=== PATIENT | male | born 1955 | race Caucasian/White ===

== ENCOUNTER 2017-04-16 06:07 | Inpatient (IN) ==
--- NOTE | 2017-04-15 20:08 | Discharge Summary ---
<Sara Callahan - Last Filed: 04/15/17 20:05> Date of Encounter: 04/15/17 - Discharge Diagnosis (1) Loosening of knee joint prosthesis Status: Acute Qualifiers: Encounter type: initial encounter Qualified Code(s): T84.038A - Mechanical loosening of other internal prosthetic joint, initial encounter; Z96.659 - Presence of unspecified artificial knee joint (2) COPD (chronic obstructive pulmonary disease) Priority: Secondary Status: Chronic Qualifiers: COPD type: chronic bronchitis (3) Tobacco abuse Priority: Secondary Status: Chronic - Discharge Medications Home Medications: Melatonin 5 mg PO HS PRN 07/13/16 [History] Aspirin Enteric Coated [Aspirin EC] 325 mg PO DAILY #21 tablet.dr 04/15/17 [Rx] OxyCODONE/APAP 5/325 [Percocet 5/325 MG] 1 - 2 each PO Q6HR PRN #40 tablet 04/15 [Rx] Acetaminophen/Diphenhydramine [Night Time Pain Medicine Cplt] 8 - 10 tab PO HS PRN 04/16/17 [History] Ibuprofen [Motrin] 200 mg PO Q2-3H PRN 04/16/17 [History] Allergies/Adverse Reactions: Allergies Penicillins [PCN] Allergy (Verified 04/16/17 07:15) Hives Halothane Adverse Reaction (Verified 04/16/17 07:15) See Comments "slept for 20 hours" Couldn't wake up after surgery. Primary care physician: PCP NO - Patient Status Disposition: Home, Self-Care Condition: Good - Discharge Instructions Follow Up With: NO,PCP [Primary Care Provider] - - Hospital Course Hospital course: Mr. Castillo is a 61 year old male - Time Spent with Patient Total time spent providing and/or coordinating discharge services: <Gilbert Gage - Last Filed: 04/19/17 08:05> Date of Encounter: 04/19/17 Time of Encounter: 08:04 - Discharge Diagnosis (1) COPD (chronic obstructive pulmonary disease) Priority: Secondary Status: Chronic Qualifiers: COPD type: chronic bronchitis Chronic bronchitis type: unspecified Qualified Code(s): J42 - Unspecified chronic bronchitis (2) Tobacco abuse Priority: Secondary Status: Chronic (3) Loosening of knee joint prosthesis Priority: Primary Status: Acute Qualifiers: Encounter type: initial encounter Qualified Code(s): T84.038A - Mechanical loosening of other internal prosthetic joint, initial encounter; Z96.659 - Presence of unspecified artificial knee joint Primary care physician: PCP NO - Patient Status Overall status at discharge: patient is progressing back to baseline - Hospital Course Hospital course: Mr. Castillo is a 61 year old male The patient had an uneventful postoperative course. They received antibiotics and physical therapy and were discharged in stable condition. There will follow -up in the office in 2 weeks. Aspirin DVT prophylaxis - Time Spent with Patient Total time spent providing and/or coordinating discharge services:
--- NOTE | 2017-04-16 06:20 | History & Physical Report ---
Date of Encounter: 04/16/17 Time of Encounter: 06:19 24 Hour HP Update - Instructions Instructions: If the History and Physical is less than 30 days old and was completed prior to A.M. admission and or procedure and has NOT been updated on calendar day of procedure please complete this update prior to performing procedure. - Update Patient reports changes in Medical Condition: No Changes in examination, assessment, or condition: No Changes in Medication: No Preop tests/diagnostics Reviewed: Yes Surgery Remains Indicated: Yes Consent for Planned Operative Procedure(s) Verified: Yes - Pre-Operative Checklist Preoperative Checklist Indicated: No Prophylactic Antibiotic Ordered: Yes Is VTE Prophylaxis Indicated?: Yes
[2017-04-16] MEDS ORDERED: Vancomycin 750 MG in D5% in Water 250 ML IVPB ONE (06:27)
[2017-04-16] MEDS ORDERED: Albuterol 2.5 MG/3 ML NEBULIZER IH ONE (06:27)
[2017-04-16] MEDS ORDERED: Ringers Solution, Lactated 1,000 ML IVC SCH ×2 (06:30→11:07)
[2017-04-16] MEDS ORDERED: *HR* FentaNYL (PF) 100 MCG/2 ML VIAL ONE (07:04)
[2017-04-16] MEDS ORDERED: *HR* Propofol 200 MG/20 ML VIAL IVP ONE (07:04)
[2017-04-16] MEDS ORDERED: *HR* Midazolam HCl 2 MG/2 ML VIAL ONE (07:04)
[2017-04-16] MEDS ORDERED: *HR* Succinylcholine 200 MG/10 ML VIAL IVP ONE (07:05)
[2017-04-16] MEDS ORDERED: Lidocaine -MPF 2% 2 ML VIAL ONE (07:05)
[2017-04-16] MEDS ORDERED: Dexamethasone 4 MG/ML VIAL ONE (07:05)
[2017-04-16] MEDS ORDERED: Ondansetron 4 MG/2 ML VIAL ONE (07:05)
[2017-04-16] MEDS ORDERED: *HR* Phenylephrine 10 MG/ML VIAL ONE (07:05)
--- NOTE | 2017-04-16 07:10 | Anesthesia Evaluation PreOp ---
Date of Encounter: 04/16/17 Time of Encounter: 07:00 - Past History Planned Operation: Left Total Knee Arthroplasty, Revision Patella Cardiac History: Denies any Significant Hx Pulmonary History: Smoker, COPD DEVELOPMENT TRAINER History: Denies Any Significant HX Other Medical History: GERD (well controlled) Anesthesia History: No Prior Anesthetic Complications Alcohol Use: none Drug use: none Medications and Allergies Gabapentin [Neurontin] 300 mg PO TID 07/13/16 [History] Melatonin 5 mg PO HS 07/13/16 [History] Omeprazole [PriLOSEC] 20 mg PO DAILY 07/13/16 [History] Temazepam [Restoril] 30 mg PO HS 07/13/16 [History] Aspirin Enteric Coated [Aspirin EC] 325 mg PO DAILY #21 tablet. 04/15/17 [Rx] OxyCODONE/APAP 5/325 [Percocet 5/325 MG] 1 - 2 each PO Q6HR PRN #40 tablet 04/15 [Rx] Allergies Penicillins [PCN] Allergy (Verified 04/10/17 12:16) Hives Halothane Adverse Reaction (Verified 04/10/17 12:16) See Comments "slept for 20 hours" Couldn't wake up after surgery. - Meds/Allergy Pre-op Review Medications Reviewed: Yes Allergies Reviewed: Yes Beta Blockers on Current Med List: No Anesthesia Results - Labs Laboratory Tests 04/10/17 04/10/17 12:36 12:36 Hgb 14.9 Hct 44.6 Plt Count 465 H Sodium 135 L Potassium 4.2 BUN 9 Creatinine 0.75 - Imaging EKG: report reviewed (SR) Anesthesia Exam O2 Sat Height 1.7 m Height 1.7 m Height 1.7 m Weight 58.06 kg Weight 58.06 kg Weight 58.06 kg O2 Sat by Pulse Oximetry 98 Vital Signs Temp Pulse Resp BP Pulse Ox 98.1 F 67 18 153/86 98 04/16/17 06:25 04/16/17 06:25 04/16/17 06:25 04/16/17 06:25 04/16/17 06:25 Height: 5'7 Weight: 128 lbs NPO (# of Hours): MN Pain Scale: 0 - HEENT Pupil (Motor): Pupils equal, EOMI Mallampati: II Teeth: Edentulous Oral Opening: Less than or equal to 3 - DEVELOPMENT TRAINER LOC: Oriented DEVELOPMENT TRAINER Motor: Normal RUE, Normal LUE, Normal RLE, Normal LLE, Normal Face DEVELOPMENT TRAINER Sensory: Normal: RUE, LUE, RLE, LLE, Face - Cardiac Rhythm: Regular Murmur: None JVD: No Carotid Bruit: No - Pulmonary Breath Sounds: bilateral Clear Respiratory Effort: Symmetrical Anesthesia Assess/Plan ASA Score: 2 Modified Jazmin Scale for Level of Consciousness: Cooperative, oriented, and tranquil Anesthetic Plan: General, Regional Monitoring Plan: Standard Monitors Recovery Plan: PACU (Discussed GA and RA, agrees to proceed)
[2017-04-16] MEDS ORDERED: Bupivacaine/Clonidine Syringe 1 EACH SYRINGE ONE (07:25)
[2017-04-16] MEDS ORDERED: Albuterol 2.5 MG/3 ML NEBULIZER ONE (07:28)
--- NOTE | 2017-04-16 07:51 | Anesthesia Procedures ---
Date of Encounter: 04/16/17 Time of Encounter: 07:49 Procedures: Anesthesia - Nerve Block Procedure Date: 04/16/17 Time: 07:49 Pre-op Diagnosis: L knee pain Surgical Procedure: L TKA Checklist: Correct Patient Identifier Correct side: Left Blood Thinner: No Monitor Applied: EKG, BP, Pulse Oximetry Supplemental Oxygen via Nasal Cannula (L/min): 3 Sedation: Versed (mg): 2 Sedation: Fentanyl (mcg): 100 Indication: Post Op Analgesia Pre-op Neuro Deficits: No Block Type: Femoral, Other (IPAK) Catheter placed: No Sterile Technique: Yes Ultrasound used: Yes Anatomy identified: Yes Visual spread of Local: Yes Neuro Stimulation: Yes Nerve Stimulator Range: 0.2 - 0.4 mA Blood on Needle Aspiration: No Smooth Injection of Local: Yes Pain with Injection of Local: No Prep: Chlorhexadine Needle: 22 x 50 mm Stimuplex, 21 x 100 mm Stimuplex Local: 0.25% Bupivicaine w/Clonidine 20 mcg/cc, Ropivacaine (0.2 300) Volume (cc): 30/20 Number of Attempts: 1 Complications: None/effective block Vitals: Vital Signs/O2 Sat, Most Current Temp Pulse Resp BP Pulse Ox 98.1 F 71 16 149/92 93 04/16/17 07:39 04/16/17 07:43 04/16/17 07:43 04/16/17 07:43 04/16/17 07:43 Comments: aseptic, devon well
[2017-04-16] MEDS ORDERED: Ondansetron 4 MG/2 ML VIAL IVP PRN ×2 (07:54→11:07)
[2017-04-16] MEDS ORDERED: *HR* HYDROmorphone 2 MG/ML SYRINGE ONE (08:26)
--- NOTE | 2017-04-16 09:12 | Orthopedic Operative Note ---
Date of procedure: 04/16/17 Pre-op diagnosis: aseptic loosening left total knee Post-op diagnosis: same Procedure: Procedure:left revision total knee patellectomy Estimated blood loss: Hardware: Metal and polyethylene replacement. Biomet SSK femur: 60 12 x 40 Tibia:67, small wing 10 x 80 Constrained Mala:22 Exam Under anesthesia: full flexion and extension varus valgus instability Procedural Notes:loose femur and tibia Operative procedure: The patient was brought to the operating room and placed on the operating room table. After general anesthesia was administered the operative knee was examined. Findings were noted in the exam under anesthesia. The operative extremity was prepped and draped in sterile surgical fashion. The patient received IV antibiotics prior to skin incision. A standard midline incision was made centered over the patella through the old incision. The incision was made through the skin and subcutaneous tissue. A medial parapatellar tendon approach was performed. Care was taken to preserve tissue along the medial aspect of the patella. And to protect the patella tendon. the patella was excisedThe deep MCL was released off the medial tibia. The infra patella fat pad was excised. Fluid was encountered this was normal joint fluid , Cultures were obtained and gram . The knee was brought into flexion the poly-was removed. The interface between the patient's femoral component and distal femur were disrupted with a osteotome and oscillating saw. Femoral component was removed removed without significant bone loss and was loose. Attention was then turned to the tibial component. The same technique was used to remove the tibial component by disrupting the interface between the patient's tibial component and the patients proximal tibia. The tibial component was loose, was removed without significant bone loss. The tibia was sized to a 67 was reamed up to a 10x80. Trial had good fit and fixation. The femur was sized to a 60, was reamed up to a 12x40. The finishing guide was seated and the box cut was made. The trial had good fit and fixation. Both trial components were seated and the 22 constrained Mala was seated and secured. The knee had full flexion and full extension with no instability. The trial components were removed. The knee sat for 2 minutes with a Betadine saline solution. It was irrigated out with 2 L of pulse irrigation. The components were assembled on the back table, the tibia cemented first followed by the femur. The 22 constrained liner was seated and secure. The knee was brought to full extension while the cement hardened. After the cement hardened the knee was irrigated out again. The extensor mechanism was closed with a running #2 PDS suture. The deep tissue was irrigated and closed deep with #1 PDS suture superficially with 0 PDS suture. The skin was closed with skin sofia. The patient was placed in a sterile dressing and postoperative brace. They were extubated and transferred to recovery room in stable condition. Anesthesia: PRADEEP Surgeon: Gilbert Gage Inserting Operator: Sara Callahan Condition: stable Disposition: PACU
[2017-04-16 09:44] LABS: Hematocrit 39.4 % (37.5-50.1); Hemoglobin 13.4 g/dL (12.9-16.9)
[2017-04-16] MEDS ORDERED: *HR* HYDROmorphone (PF) 1 MG/ML SYRINGE ONE ×2 (09:45→10:09)
[2017-04-16] MEDS: *HR* HYDROmorphone (PF) 1 MG/ML SYRINGE IVP PRN ×7 (09:49→22:38)
[2017-04-16] MEDS ORDERED: Acetaminophen IV 1,000 MG/100 ML INFUS..BTL IVPB ONE (10:29)
[2017-04-16] MEDS ORDERED: Ketorolac 30 MG/ML VIAL IM ONE (10:29)
[2017-04-16] MEDS ORDERED: *HR* OxyCODONE Immed Rel 5 MG TABLET PO PRN (11:07)
[2017-04-16] MEDS ORDERED: Sennosides 8.6 MG TABLET PO PRN (11:07)
[2017-04-16] MEDS ORDERED: Melatonin 3 MG TABLET PO PRN (11:07)
[2017-04-16] MEDS ORDERED: Naloxone 0.4 MG/ML INJ IVP PRN (11:07)
[2017-04-16] MEDS ORDERED: MOM Conc 10 ML UD.LIQ PO PRN (11:07)
--- NOTE | 2017-04-16 11:31 | Anesthesia Evaluation Post Op ---
Date of Encounter: 04/16/17 Time of Encounter: 11:00 - Vital Signs Vital Signs: Vital Signs/O2 Sat/Glucose, Most Current Temp Pulse Resp BP Pulse Ox 04/16/17 11:08 97.5 F L 91 18 156/83 96 04/16/17 10:59 98.4 F 90 16 158/93 93 04/16/17 10:49 89 16 159/91 93 04/16/17 10:39 80 16 141/92 94 04/16/17 10:29 98.4 F 82 16 164/98 92 04/16/17 10:19 82 16 164/100 92 04/16/17 10:09 90 16 168/106 92 04/16/17 09:59 97.4 F L 82 16 147/83 94 04/16/17 09:49 86 16 156/96 96 04/16/17 09:39 82 16 145/83 96 04/16/17 09:29 97.4 F L 79 16 122/91 98 04/16/17 07:43 71 16 149/92 93 04/16/17 07:39 98.1 F 67 18 153/86 - Lungs Lungs: Clear Ascult./Percussion - Airway Airway: Non-obstructed - Cardiovascular Regular Rate - Mental Status Mental Status: Alert & Oriented, Answers Appropriately - Pain Pain Scale: 4 - Nausea Vomiting Nausea Vomiting: Not Present - Hydration Hydration: Ice chips - Discharge PostOp Status: Transfer Patient to floor
[2017-04-16] MEDS: *HR* OxyCODONE Immed Rel 5 MG TABLET PO PRN ×3 (13:04→21:32)
[2017-04-16] MEDS: *HR* Enoxaparin 30 MG/0.3 ML SYRINGE SQ SCH (17:36)
[2017-04-16] MEDS: Clindamycin 900 MG/50 ML 900 MG/50 ML IV.SOLN IVPB SCH (17:40)
[2017-04-16] MEDS ORDERED: *HR* Enoxaparin 30 MG/0.3 ML SYRINGE SQ SCH (18:00)
[2017-04-16] MEDS: Ketorolac 15 MG/ML VIAL IVP PRN (19:38)
[2017-04-16] MEDS: Temazepam 15 MG CAPSULE PO PRN (22:38)
[2017-04-17] MEDS: Clindamycin 900 MG/50 ML 900 MG/50 ML IV.SOLN IVPB SCH (00:33)
[2017-04-17] MEDS: *HR* HYDROmorphone (PF) 1 MG/ML SYRINGE IVP PRN ×10 (00:34→22:30)
[2017-04-17] MEDS: *HR* OxyCODONE Immed Rel 5 MG TABLET PO PRN ×5 (01:34→19:31)
[2017-04-17] MEDS: *HR* Enoxaparin 30 MG/0.3 ML SYRINGE SQ SCH ×2 (04:56→17:11)
[2017-04-17 05:51] LABS: Hematocrit 37.2 % (37.5-50.1); Hemoglobin 12.2 g/dL (12.9-16.9)
[2017-04-17 06:11] LABS: BUN/Creatinine Ratio 20 (6-26); Blood Urea Nitrogen 15 mg/dL (8-26); Calcium 8.7 mg/dL (8.6-10.8); Carbon Dioxide 29 mEq/L (19-29); Chloride 101 mEq/L (98-109); Glucose 99 mg/dL (70-99); Osmolality,Calculated 283 (280-300); Potassium 4.4 mEq/L (3.5-4.5); Sodium 136 mEq/L (136-145); eGFR For African Americans > 60 (> 60); eGFR For Non-African Americans > 60 (> 60)
--- NOTE | 2017-04-17 06:37 | Orthopedics Progress Note ---
Date of Encounter: 04/17/17 Time of Encounter: 06:37 - Assessment and Plan (1) COPD (chronic obstructive pulmonary disease) Current Visit: No Status: Chronic Qualifiers: COPD type: chronic bronchitis Chronic bronchitis type: unspecified Qualified Code(s): J42 - Unspecified chronic bronchitis (2) Tobacco abuse Current Visit: No Status: Chronic (3) Loosening of knee joint prosthesis Current Visit: Yes Status: Acute Qualifiers: Encounter type: initial encounter Qualified Code(s): T84.038A - Mechanical loosening of other internal prosthetic joint, initial encounter; Z96.659 - Presence of unspecified artificial knee joint Subjective Interval history: Patient was seen this morning doing well without complaints. Afebrile vital signs stable. Operative extremity: Neurovascularly intact Dressing clean dry and intact Calves nontender Assessment and plan: Continue with postoperative care Hematocrit 37 Objective Vital signs: Vital Signs Temp Pulse Resp BP Pulse Ox 04/17/17 03:21 98.3 F 78 16 133/79 94 04/17/17 00:05 98.4 F 77 16 131/76 94 04/16/17 19:30 98.4 F 89 16 133/74 94 04/16/17 15:36 98.4 F 91 16 137/76 99 04/16/17 14:15 97.6 F 92 19 128/83 96 04/16/17 13:00 97.7 F 98 17 122/71 96 04/16/17 12:15 97.7 F 94 18 120/77 96 04/16/17 11:40 97.5 F L 95 17 136/80 95 04/16/17 11:08 97.5 F L 91 18 156/83 96 04/16/17 10:59 98.4 F 90 16 158/93 93 04/16/17 10:49 89 16 159/91 93 04/16/17 10:39 80 16 141/92 94 04/16/17 10:29 98.4 F 82 16 164/98 92 04/16/17 10:19 82 16 164/100 92 04/16/17 10:09 90 16 168/106 92 04/16/17 09:59 97.4 F L 82 16 147/83 94 04/16/17 09:49 86 16 156/96 96 04/16/17 09:39 82 16 145/83 96 04/16/17 09:29 97.4 F L 79 16 122/91 98 04/16/17 07:43 71 16 149/92 93 04/16/17 07:39 98.1 F 67 18 153/86 04/16/17 07:28 76 16 157/92 98 Intake and Output 04/16/17 04/16/17 04/17/17 15:59 23:59 07:59 Intake Total 250 / 250 870 / 870 Output Total 200 / 200 850 / 850 950 / 950 Balance 50 / 50 / -950 / -950 Intake: IV Fluids 250 / 250 50 / 50 Cleocin Premix 900 MG/50 50 / 50 ML 900 mg In 50 ml @ 50 mls/hr IVPB Q8HR JUSTIN Rx#: [id number] Vancocin 750 MG In 250 / 250 Dextrose 5% 250 ML @ 167 mls/hr IVPB ONCE ONE Rx#: [id number] Oral 820 / 820 Output: Estimated Blood Loss 200 / 200 Straight Cath 850 / 850 950 / 950 Other: Meal Dinner Percent of Meal Consumed 100% Weight 61.1 kg Patient Weight 04/17/17 23:59 Weight 61.1 kg - Labs CBC & BMP: 04/17/17 04:05 04/17/17 04:05 Labs: Abnormal lab results Hgb 12.2 g/dL (12.9-16.9) L 04/17/17 04:05 Hct 37.2 % (37.5-50.1) L 04/17/17 04:05 - VTE Documentation of Mechanical Device: Venous foot pump, device Consult Discharge Plan - Plan Referrals: NO,PCP [Primary Care Provider] -
[2017-04-17] MEDS: Ketorolac 15 MG/ML VIAL IVP PRN ×3 (07:27→21:53)
[2017-04-18] MEDS: *HR* OxyCODONE Immed Rel 5 MG TABLET PO PRN ×6 (00:10→20:04)
[2017-04-18] MEDS: *HR* HYDROmorphone (PF) 1 MG/ML SYRINGE IVP PRN ×5 (00:51→11:20)
[2017-04-18] MEDS: Ketorolac 15 MG/ML VIAL IVP PRN ×2 (04:53→15:00)
[2017-04-18] MEDS: *HR* Enoxaparin 30 MG/0.3 ML SYRINGE SQ SCH ×2 (05:29→18:48)
[2017-04-18 05:32] LABS: Hematocrit 37.2 % (37.5-50.1); Hemoglobin 12.5 g/dL (12.9-16.9)
[2017-04-18 05:46] LABS: BUN/Creatinine Ratio 10 (6-26); Blood Urea Nitrogen 7 mg/dL (8-26); Calcium 9.3 mg/dL (8.6-10.8); Carbon Dioxide 28 mEq/L (19-29); Chloride 98 mEq/L (98-109); Glucose 95 mg/dL (70-99); Osmolality,Calculated 276 (280-300); Sodium 134 mEq/L (136-145); eGFR For African Americans > 60 (> 60); eGFR For Non-African Americans > 60 (> 60)
[2017-04-18 05:52] LABS: Potassium 4.4 mEq/L (3.5-4.5)
--- NOTE | 2017-04-18 08:18 | Orthopedics Progress Note ---
Date of Encounter: 04/18/17 Time of Encounter: 08:18 - Assessment and Plan (1) COPD (chronic obstructive pulmonary disease) Current Visit: No Status: Chronic Qualifiers: COPD type: chronic bronchitis Chronic bronchitis type: unspecified Qualified Code(s): J42 - Unspecified chronic bronchitis (2) Tobacco abuse Current Visit: No Status: Chronic (3) Loosening of knee joint prosthesis Current Visit: Yes Status: Acute Qualifiers: Encounter type: initial encounter Qualified Code(s): T84.038A - Mechanical loosening of other internal prosthetic joint, initial encounter; Z96.659 - Presence of unspecified artificial knee joint Subjective Interval history: Patient was seen this morning doing well without complaints. Afebrile vital signs stable. Operative extremity: Neurovascularly intact Dressing clean dry and intact Calves nontender Assessment and plan: Continue with postoperative care Hematocrit 37 Objective Vital signs: Vital Signs Temp Pulse Resp BP Pulse Ox 04/18/17 06:48 97.8 F 84 16 118/76 95 04/18/17 00:11 97.5 F L 88 15 114/75 93 04/17/17 19:20 99.0 F 99 18 171/93 94 04/17/17 15:06 98.4 F 94 16 150/91 94 04/17/17 10:52 98.9 F 90 18 137/82 97 Intake and Output 04/17/17 04/18/17 04/18/17 23:59 07:59 15:59 Intake Total 240 / 240 Output Total 1650 / 1650 Balance -1410 / -1410 Intake: Oral 240 / 240 Output: Straight Cath 1650 / 1650 Other: Meal Dinner Percent of Meal Consumed 75% Weight 62.3 kg Patient Weight 04/18/17 23:59 Weight 62.3 kg - Labs CBC & BMP: 04/18/17 04:49 04/18/17 04:49 Labs: Abnormal lab results Hgb 12.5 g/dL (12.9-16.9) L 04/18/17 04:49 Hct 37.2 % (37.5-50.1) L 04/18/17 04:49 Sodium 134 mEq/L (136-145) L 04/18/17 04:49 BUN 7 mg/dL (8-26) L 04/18/17 04:49 Creatinine 0.68 mg/dL (0.72-1.25) L 04/18/17 04:49 Calculated Osmolality 276 (280-300) L 04/18/17 04:49 - VTE Documentation of Mechanical Device: Venous foot pump, device Consult Discharge Plan - Plan Referrals: NO,PCP [Primary Care Provider] -
[2017-04-18] MEDS ORDERED: *HR* Morphine 2 MG/ML SYRINGE IV PRN (22:29)
[2017-04-19] MEDS: Temazepam 15 MG CAPSULE PO PRN (00:03)
[2017-04-19] MEDS: *HR* OxyCODONE Immed Rel 5 MG TABLET PO PRN ×3 (00:03→08:01)
[2017-04-19] MEDS: *HR* Enoxaparin 30 MG/0.3 ML SYRINGE SQ SCH (05:14)
[2017-04-19 06:44] VITALS: BP 117/74
--- NOTE | 2017-04-19 08:06 | Orthopedics Progress Note ---
Date of Encounter: 04/19/17 Time of Encounter: 08:05 - Assessment and Plan (1) COPD (chronic obstructive pulmonary disease) Current Visit: No Status: Chronic Qualifiers: COPD type: chronic bronchitis Chronic bronchitis type: unspecified Qualified Code(s): J42 - Unspecified chronic bronchitis (2) Tobacco abuse Current Visit: No Status: Chronic (3) Loosening of knee joint prosthesis Current Visit: Yes Status: Acute Qualifiers: Encounter type: initial encounter Qualified Code(s): T84.038A - Mechanical loosening of other internal prosthetic joint, initial encounter; Z96.659 - Presence of unspecified artificial knee joint Subjective Interval history: Patient was seen this morning doing well without complaints. Afebrile vital signs stable. Operative extremity: Neurovascularly intact Dressing clean dry and intact Calves nontender Assessment and plan: Continue with postoperative care Discharged today Objective Vital signs: Vital Signs Temp Pulse Resp BP Pulse Ox 04/19/17 06:42 98.8 F 101 18 117/74 94 04/19/17 00:07 98.5 F 105 17 133/81 94 04/18/17 19:22 99 F 94 17 131/81 94 04/18/17 15:27 98.0 F 94 16 150/95 95 04/18/17 10:02 97.9 F 87 16 124/78 96 Intake and Output 04/18/17 04/19/17 04/19/17 23:59 07:59 15:59 Intake Total 60 / 60 60 / 60 Balance 60 / 60 60 / 60 Intake: Oral 60 / 60 60 / 60 Other: # Voids 1 Weight 60.5 kg Patient Weight 04/19/17 23:59 Weight 60.5 kg - Labs CBC & BMP: 04/18/17 04:49 04/18/17 04:49 Labs: Abnormal lab results Hgb 12.5 g/dL (12.9-16.9) L 04/18/17 04:49 Hct 37.2 % (37.5-50.1) L 04/18/17 04:49 Sodium 134 mEq/L (136-145) L 04/18/17 04:49 BUN 7 mg/dL (8-26) L 04/18/17 04:49 Creatinine 0.68 mg/dL (0.72-1.25) L 04/18/17 04:49 Calculated Osmolality 276 (280-300) L 04/18/17 04:49 - VTE Documentation of Mechanical Device: Venous foot pump, device Consult Discharge Plan - Plan Additional Instructions: Discharge Instructions: Total Knee Replacement Please call [facility] ([phone]), your Primary Care Physician, or report to the Emergency Room if you have any of the following symptoms: Nausea, vomiting, fever greater that 101.5, swelling, chest pain, shortness of breath, increased pain/redness/drainage/odor for your incision site, numbness/ tingling, or any other concerning symptoms. ACTIVITY:Weight-bearing as tolerated. You may progress off support (crutches or walker) as tolerated. Keep brace on at all times. MEDICATIONS: Upon discharge resume your home medications. Take all the medications as prescribed. Take a stool softener if taking narcotic pain medications. Stool softeners are only effective if you drink enough fluids. Drink 6-8 glass of water or fluids a day, unless this is not allowed for another health problem. Despite using stool softeners, if you haven't had a bowel movement in 3 days, please switch to a gentle laxative. Gentle laxatives are sold over the counter. You should have a bowel movement within 24 hours, if not call the office. You will be discharged from the hospital with a prescription for pain medication. You are encouraged to decrease the use of narcotic pain medication as tolerated. Should you require a refill, please call the office. [facility] prescribes narcotic pain medication for only 4-6 weeks after surgery. If you require pain medication beyond this time period, you may be referred to your Primary Care Physician or to the Pain Clinic for further evaluation. Plan ahead for refills on pain medication as many narcotics either need to be picked up at the office or mailed. It is best to call 48-72 hours in advance of needing a prescription refill so you don't run out of medication. To help control the post-operative pain, you may take NSAIDs (Aleve,Advil, Motrin, Ibuprofen, Naprosyn) or Tylenol as prescribed on the bottle in addition to the pain medication. ANTICOAGULATION (blood thinners): Continue your Aspirin, Lovenox or Coumadin as prescribed to help prevent a blood clot in the leg or in the lungs. As long as your incision remains dry and you tolerate the NSAIDs (Aleve, Advil, Motrin, ibuprofen, naprosyn), it is OK to use the NSAIDS while you are taking your anticoagulation medication. Should your incision start to drain, stop the NSAID and contact our office. Common symptoms of blood clot in the legs include: localized pain, swelling, calf tenderness, redness or discoloration of the skin. Blood clot in the lung symptoms include: shortness of breath, rapid pulse, sweating, and chest pain that worsens with deep breathing, coughing up blood, lightheadedness, feelings of anxiety. If you experience any of these symptoms notify your physician immediately, go to the emergency room, or if having trouble breathing, call 911. WOUND CARE: Leave the dressing on for 7 to 10days. You may change the dressing if it becomes saturated greater than 50%. Do not get the dressing wet at anytime. Wash your hands with antibacterial soap, rinse and dry prior to any wound care. If you have sofia the visiting nurse or rehab facility can remove the stapes 10-14 days after surgery and place steri-strips across the wound. Leave the steri-strips in place until they fall off on their won. You may let water from the shower run on top of the steri-strips. If you do not have a visiting nurse or rehab facility, you will need to return to the office at 10-14 days for the sofia to be removed. If you have itching or redness around the dressing call the office. FOLLOW-UP: Please follow up with your surgeon in the orthopedic clinic in 4 weeks from the day of surgery. If you have sofia that need to be removed, you will need to come back to the office in 10-14 days from the day of surgery. Referrals: NO,PCP [Primary Care Provider] -
== END 2017-04-19 10:49 | disposition home or self-care (01) | DRG 302 ==
LOC: SAMDAY 06:07 → 3NENU 11:09
PROVIDERS: ADMIT Orthopaedic Surgery; ATTEND Orthopaedic Surgery